=== PATIENT | female | born 1980 | race African-American/Black ===

== ENCOUNTER 2017-04-28 12:03 | Emergency (ER) | payer MEDICAID ==
[~2017-04-28] VITALS: Ht 177.8 cm; Wt 147.0 kg
[~2017-04-28 12:03] MED LIST: IBUP-777
[2017-04-28] MEDS ORDERED: ALBUTEROL (0.083%) 2.5MG/3ML NEB HHN STA (12:27)
[2017-04-28] MEDS ORDERED: METHYLPREDNISOLONE SOD SUCC 125 MG/2 ML VIAL IV STA (12:27)
[2017-04-28] MEDS ORDERED: IPRATROPIUM BROMIDE (0.02%) 0.5MG/2.5ML NEB HHN STA (12:27)
[2017-04-28 13:50] VITALS: BP 149/104
== END 2017-04-28 14:13 | disposition home or self-care (01) ==
LOC: ER 13:09
DX: J45.901 Unspecified asthma with (acute) exacerbation (principal); M25.562 Pain in left knee; M79.641 Pain in right hand; M25.511 Pain in right shoulder; I10 Essential (primary) hypertension; F17.210 Nicotine dependence, cigarettes, uncomplicated; W18.30XA Fall on same level, unspecified, initial encounter; Y93.89 Activity, other specified; Y92.018 Other place in single-family (private) house as the place of occurrence of the external cause
CPT/HCPCS: 73030; 73130; 73562; 94644; 96374; 99285; J2930; J7611; Z7610

== ENCOUNTER 2018-12-10 21:23 | Emergency (ER) | payer MEDICAID ==
[~2018-12-10] VITALS: Ht 177.8 cm; Wt 123.0 kg
[2018-12-10 23:23] VITALS: BP 156/97
== END 2018-12-11 02:15 | disposition left against medical advice (07) ==
LOC: ER 21:23
DX: Z53.21 Procedure and treatment not carried out due to patient leaving prior to being seen by health care provider (principal); R07.9 Chest pain, unspecified
CPT/HCPCS: 93005

== ENCOUNTER 2019-02-22 21:55 | Emergency (ER) | payer MEDICAID ==
[~2019-02-22] VITALS: Ht 177.8 cm; Wt 148.0 kg
[2019-02-22] MEDS ORDERED: LIDOCAINE HCL/PF 1% 10 MG/ML 5ML VIAL IJ ONE (22:30)
[2019-02-22] MEDS ORDERED: IBUPROFEN 600MG TABLET PO ONE (22:30)
[2019-02-22] MEDS ORDERED: BACITRACIN ZINC OINT UDPKT TOP ONE (22:30)
[2019-02-22 23:51] VITALS: BP 183/86
== END 2019-02-22 23:55 | disposition home or self-care (01) ==
LOC: ER 21:55
DX: S81.812A Laceration without foreign body, left lower leg, initial encounter (principal); J45.909 Unspecified asthma, uncomplicated; I10 Essential (primary) hypertension; F17.200 Nicotine dependence, unspecified, uncomplicated; Z79.899 Other long term (current) drug therapy; Y07.03 Male partner, perpetrator of maltreatment and neglect; Y08.89XA Assault by other specified means, initial encounter; Y93.89 Activity, other specified; Y92.89 Other specified places as the place of occurrence of the external cause; Y99.8 Other external cause status
CPT/HCPCS: 12002; 73590; 99283; J3490; Z7610

== ENCOUNTER 2019-03-10 11:32 | Emergency (ER) | payer MEDICAID ==
[~2019-03-10] VITALS: Ht 177.8 cm; Wt 111.0 kg
[2019-03-10] MEDS ORDERED: BACITRACIN ZINC OINT UDPKT TOP ONE (12:30)
[2019-03-10 12:40] VITALS: BP 135/89
== END 2019-03-10 12:53 | disposition home or self-care (01) ==
LOC: ER 11:32
DX: S81.812D Laceration without foreign body, left lower leg, subsequent encounter (principal); X58.XXXD Exposure to other specified factors, subsequent encounter; F12.10 Cannabis abuse, uncomplicated; J45.909 Unspecified asthma, uncomplicated; I10 Essential (primary) hypertension
CPT/HCPCS: 99283